=== PATIENT | male | born 1940 | race Caucasian/White ===

== ENCOUNTER 2017-10-06 10:27 | Inpatient (IN) | payer OTHER, MEDICARE ==
[~2017-10-06] VITALS: Ht 185.4 cm; Wt 115.2 kg
[~2017-10-06 10:27] MED LIST: AMIT25; AMIT25 PO; ASPI81CH PO; BUPR150ER; BUPR150ER PO; CEFD300 PO; CEPH500 PO; CHOL10002; CLOP75 PO; Colace250 MG PO; DESO.05TCA; DOCU100 PO; DULO30; DUTA.5 PO; FERR325 PO; FINA5 PO; FISH OIL 1,0001 EAC1 PO; FISH1000; FLUO25TC; GABA300; GLUC500 PO; Hair, Skin & N1 EACH; LEVSOD50 PO; LEVSOD75 PO; LISI5; LORA.5; LORA10; METF500; METF500C PO; METO25ER; NYST100TC; Norco 5-325 Ta1 EACH PO; OMEP20ER PO; PRIM50 PO; SENN187 PO; SIMV10; SIMV10 PO; TERA5; TRAM50 PO; Xanax0.5 MG SL
[2017-10-06] MEDS ORDERED: ASPI325 PO (10:53)
[2017-10-06] MEDS ORDERED: ATOR40TA PO (10:54)
[2017-10-06] MEDS ORDERED: DOCU100 PO (10:54)
[2017-10-06] MEDS ORDERED: BUPR150ER PO (10:54)
[2017-10-06] MEDS ORDERED: DULO30 PO (10:54)
[2017-10-06] MEDS ORDERED: FINA5 PO (10:54)
[2017-10-06] MEDS ORDERED: GABA300 PO (10:54)
[2017-10-06] MEDS ORDERED: LEVSOD50 PO (10:54)
[2017-10-06] MEDS ORDERED: METO50 PO (10:55)
[2017-10-06] MEDS ORDERED: DESL5 PO (10:55)
[2017-10-06] MEDS ORDERED: METF500C PO (10:55)
[2017-10-06] MEDS ORDERED: LISI5 PO (10:55)
[2017-10-06] MEDS ORDERED: TAMS.4ER PO (10:56)
[2017-10-06 11:12] LABS: BASOPHILS ABSOLUTE AUTO 0.09 K/mm3 (0.00-0.23); BASOPHILS PERCENT AUTO 1 % (0-2); EOSINOPHILS ABSOLUTE AUTO 0.44 K/mm3 (0.00-0.68); EOSINOPHILS PERCENT AUTO 4 % (0-6); IMMATURE GRAN ABSOLUTE AUTO 0.04 K/mm3 (0.00-0.10); IMMATURE GRAN PERCENT AUTO 0 % (0-1); LYMPHOCYTES ABSOLUTE AUTO 1.57 K/mm3 (0.84-5.20); LYMPHOCYTES PERCENT AUTO 14 % (21-46); MONOCYTES ABSOLUTE AUTO 0.88 K/mm3 (0.16-1.47); MONOCYTES PERCENT AUTO 8 % (4-13); Mean Corpuscular HGB 29.2 pg (26.0-34.0); Mean Corpuscular HGB Conc 33.3 g/dL (31.5-36.5); Mean Corpuscular Volume 88 fL (80-100); Mean Platelet Volume 9.8 fL (9.1-12.4); NEUTROPHILS ABSOLUTE AUTO 7.97 K/mm3 (1.96-9.15); NEUTROPHILS PERCENT AUTO 73 % (41-73); Platelet Count 281 K/mm3 (150-400); Red Blood Cell Count 4.11 M/mm3 (4.30-5.90); White Blood Cell Count 10.99 K/mm3 (4.00-11.30)
[2017-10-06 11:22] LABS: Alanine Aminotransfer (ALT/SGP 38 U/L (12-78); Albumin, Blood 3.2 g/dL (3.4-5.0); Albumin/Globulin Ratio 0.7 (0.8-1.8); Alk Phos 104 U/L (50-136); Anion Gap 11 mmol/L (6-16); Aspartate Aminotrans (AST/SGOT 30 U/L (12-37); Bilirubin, Total 0.5 mg/dL (0.1-1.0); Blood Urea Nitrogen 16 mg/dL (8-24); Bun/Creatinine Ratio 17.6 (12.0-20.0); CO2, Blood 27 mmol/L (21-32); Calcium, Blood 8.7 mg/dL (8.5-10.1); Chloride, Blood 96 mmol/L (98-108); Creatinine, Blood 0.91 mg/dL (0.60-1.20); Globulin, Blood 4.9 g/dL (2.2-4.0); Glomerular Filtration Rate >60 (60-); Glucose, Blood 150 mg/dL (70-99); Potassium, Blood 4.7 mmol/L (3.5-5.5); Sodium, Blood 134 mmol/L (136-145); Total Protein, Blood 8.1 g/dL (6.4-8.2)
[2017-10-06 12:29] LABS: Source, Urine Catheter
[2017-10-06 12:33] LABS: Bilirubin, Urine Neg (Neg); Blood, Urine 4+ (Neg); Glucose Qualitative, Urine Neg (Neg); Ketones, Urine Neg (Neg); Leukocyte Esterase, Urine 1+ (Neg); Nitrite, Urine Pos (Neg); Protein, Urine 1+ (Neg); Specific Gravity, Urine 1.015 (1.003-1.022); Urobilinogen, Urine NORM (Normal); pH, Urine 6.5 (5.0-8.0)
[2017-10-06 12:50] LABS: Appearance, Urine Cloudy (Clear); Color, Urine Yellow (P-Yellow)
[2017-10-06 12:51] LABS: Bacteria Many /hpf; Squamous Epithelial Cells Few /hpf (Few)
[2017-10-07 05:02] LABS: BASOPHILS ABSOLUTE AUTO 0.07 K/mm3 (0.00-0.23); BASOPHILS PERCENT AUTO 1 % (0-2); EOSINOPHILS PERCENT AUTO 5 % (0-6); Hematocrit 32.6 % (37.0-53.0); IMMATURE GRAN ABSOLUTE AUTO 0.02 K/mm3 (0.00-0.10); IMMATURE GRAN PERCENT AUTO 0 % (0-1); LYMPHOCYTES ABSOLUTE AUTO 1.91 K/mm3 (0.84-5.20); LYMPHOCYTES PERCENT AUTO 18 % (21-46); MONOCYTES ABSOLUTE AUTO 0.95 K/mm3 (0.16-1.47); MONOCYTES PERCENT AUTO 9 % (4-13); Mean Corpuscular HGB 29.3 pg (26.0-34.0); Mean Corpuscular HGB Conc 33.7 g/dL (31.5-36.5); Mean Corpuscular Volume 87 fL (80-100); Mean Platelet Volume 9.5 fL (9.1-12.4); NEUTROPHILS PERCENT AUTO 68 % (41-73); Platelet Count 272 K/mm3 (150-400); RDW Coefficient Variation 12.8 % (11.7-14.2); RDW Standard Deviation 40.8 fL (35.1-46.3); Red Blood Cell Count 3.75 M/mm3 (4.30-5.90); White Blood Cell Count 10.75 K/mm3 (4.00-11.30)
[2017-10-07 05:16] LABS: Anion Gap 9 mmol/L (6-16); Blood Urea Nitrogen 16 mg/dL (8-24); Bun/Creatinine Ratio 17.6 (12.0-20.0); CO2, Blood 27 mmol/L (21-32); Calcium, Blood 8.4 mg/dL (8.5-10.1); Chloride, Blood 97 mmol/L (98-108); Creatinine, Blood 0.91 mg/dL (0.60-1.20); Glomerular Filtration Rate >60 (60-); Glucose, Blood 107 mg/dL (70-99); Potassium, Blood 4.3 mmol/L (3.5-5.5); Sodium, Blood 133 mmol/L (136-145)
[2017-10-08 04:54] LABS: BASOPHILS ABSOLUTE AUTO 0.08 K/mm3 (0.00-0.23); BASOPHILS PERCENT AUTO 1 % (0-2); EOSINOPHILS ABSOLUTE AUTO 0.62 K/mm3 (0.00-0.68); EOSINOPHILS PERCENT AUTO 6 % (0-6); Hematocrit 34.2 % (37.0-53.0); Hemoglobin 11.4 g/dL (13.5-17.5); IMMATURE GRAN ABSOLUTE AUTO 0.03 K/mm3 (0.00-0.10); IMMATURE GRAN PERCENT AUTO 0 % (0-1); LYMPHOCYTES ABSOLUTE AUTO 1.69 K/mm3 (0.84-5.20); LYMPHOCYTES PERCENT AUTO 16 % (21-46); MONOCYTES ABSOLUTE AUTO 0.91 K/mm3 (0.16-1.47); MONOCYTES PERCENT AUTO 9 % (4-13); Mean Corpuscular HGB 28.1 pg (26.0-34.0); Mean Corpuscular HGB Conc 33.3 g/dL (31.5-36.5); Mean Corpuscular Volume 84 fL (80-100); Mean Platelet Volume 9.4 fL (9.1-12.4); NEUTROPHILS ABSOLUTE AUTO 7.07 K/mm3 (1.96-9.15); NEUTROPHILS PERCENT AUTO 68 % (41-73); Platelet Count 294 K/mm3 (150-400); RDW Coefficient Variation 12.8 % (11.7-14.2); RDW Standard Deviation 39.1 fL (35.1-46.3); Red Blood Cell Count 4.06 M/mm3 (4.30-5.90)
[2017-10-08 05:07] LABS: Anion Gap 10 mmol/L (6-16); Blood Urea Nitrogen 12 mg/dL (8-24); Bun/Creatinine Ratio 13.5 (12.0-20.0); CO2, Blood 27 mmol/L (21-32); Calcium, Blood 8.6 mg/dL (8.5-10.1); Chloride, Blood 99 mmol/L (98-108); Creatinine, Blood 0.89 mg/dL (0.60-1.20); Glomerular Filtration Rate >60 (60-); Glucose, Blood 112 mg/dL (70-99); Potassium, Blood 4.1 mmol/L (3.5-5.5); Sodium, Blood 136 mmol/L (136-145)
[2017-10-10 05:12] LABS: BASOPHILS ABSOLUTE AUTO 0.08 K/mm3 (0.00-0.23); BASOPHILS PERCENT AUTO 1 % (0-2); EOSINOPHILS ABSOLUTE AUTO 0.66 K/mm3 (0.00-0.68); EOSINOPHILS PERCENT AUTO 6 % (0-6); Hematocrit 36.3 % (37.0-53.0); IMMATURE GRAN ABSOLUTE AUTO 0.03 K/mm3 (0.00-0.10); IMMATURE GRAN PERCENT AUTO 0 % (0-1); LYMPHOCYTES ABSOLUTE AUTO 1.75 K/mm3 (0.84-5.20); LYMPHOCYTES PERCENT AUTO 16 % (21-46); MONOCYTES ABSOLUTE AUTO 0.87 K/mm3 (0.16-1.47); MONOCYTES PERCENT AUTO 8 % (4-13); Mean Corpuscular HGB 28.4 pg (26.0-34.0); Mean Corpuscular HGB Conc 33.1 g/dL (31.5-36.5); Mean Corpuscular Volume 86 fL (80-100); Mean Platelet Volume 9.4 fL (9.1-12.4); NEUTROPHILS ABSOLUTE AUTO 7.34 K/mm3 (1.96-9.15); NEUTROPHILS PERCENT AUTO 68 % (41-73); Platelet Count 331 K/mm3 (150-400); RDW Standard Deviation 39.8 fL (35.1-46.3); Red Blood Cell Count 4.23 M/mm3 (4.30-5.90); White Blood Cell Count 10.73 K/mm3 (4.00-11.30)
[2017-10-10 05:46] LABS: Alanine Aminotransfer (ALT/SGP 58 U/L (12-78); Albumin/Globulin Ratio 0.6 (0.8-1.8); Alk Phos 100 U/L (50-136); Anion Gap 8 mmol/L (6-16); Aspartate Aminotrans (AST/SGOT 40 U/L (12-37); Bilirubin, Total 0.7 mg/dL (0.1-1.0); Blood Urea Nitrogen 15 mg/dL (8-24); Bun/Creatinine Ratio 17.2 (12.0-20.0); CO2, Blood 28 mmol/L (21-32); Calcium, Blood 8.8 mg/dL (8.5-10.1); Chloride, Blood 99 mmol/L (98-108); Creatinine, Blood 0.87 mg/dL (0.60-1.20); Globulin, Blood 4.9 g/dL (2.2-4.0); Glomerular Filtration Rate >60 (60-); Glucose, Blood 107 mg/dL (70-99); Potassium, Blood 3.9 mmol/L (3.5-5.5); Sodium, Blood 135 mmol/L (136-145); Total Protein, Blood 7.9 g/dL (6.4-8.2)
[2017-10-12] MEDS ORDERED: PANT40 PO (15:29)
[2017-10-12] MEDS ORDERED: LEVFLO500 PO (15:29)
== END 2017-10-12 15:35 | DRG 178 ==
LOC: ER 10:27 → MEDS 14:34 → ENPENDDIS 10-12 14:51 → MEDS 10-12 15:35
PROVIDERS: Internal Medicine
DX: J69.0 Pneumonitis due to inhalation of food and vomit (principal); G91.2 (Idiopathic) normal pressure hydrocephalus; N39.0 Urinary tract infection, site not specified; Z79.82 Long term (current) use of aspirin; I10 Essential (primary) hypertension; I48.91 Unspecified atrial fibrillation; Z85.068 Personal history of other malignant neoplasm of small intestine; F03.90 Unspecified dementia, unspecified severity, without behavioral disturbance, psychotic disturbance, mood disturbance, and anxiety; E78.5 Hyperlipidemia, unspecified; E03.9 Hypothyroidism, unspecified; E11.42 Type 2 diabetes mellitus with diabetic polyneuropathy; Z96.653 Presence of artificial knee joint, bilateral; Z79.84 Long term (current) use of oral hypoglycemic drugs; A49.8 Other bacterial infections of unspecified site; R13.10 Dysphagia, unspecified; Z91.81 History of falling; E86.0 Dehydration; D64.9 Anemia, unspecified
CPT/HCPCS: 36415; 51701; 70450; 71046; 80048; 80053; 81001; 82947; 85025; 87040; 87077; 87086; 87186; 92526; 92610; 93005; 93010; 94640; 94760; 96365; 96368; 97110; 97161; 97166; 97530; 97535; 99285-25; G8978; G8979; G8987; G8988; G8996; G8997; G8998; J0696; J1650; J2543; J7030; J7120

== ENCOUNTER 2018-10-07 10:09 | Emergency (ER) | payer MEDICARE, OTHER ==
[~2018-10-07] VITALS: Ht 193 cm; Wt 127.9 kg
[~2018-10-07 10:09] MED LIST changes: +ASPI325 PO; +ATOR20 PO; +DESL5 PO; +DULO30 PO; +GABA300 PO; +LEVFLO500 PO; +LISI5 PO; +METO50 PO; +PANT40 PO; +TAMS.4ER PO
[2018-10-07] MEDS ORDERED: CHOL10002 PO (10:59)
[2018-10-07] MEDS ORDERED: Norco 5-325 Ta1 EACH PO (11:10)
[2018-10-07] MEDS ORDERED: Loratadine10 MG PO (11:10)
[2018-10-07 11:14] LABS: BASOPHILS ABSOLUTE AUTO 0.07 K/mm3 (0.00-0.23); BASOPHILS PERCENT AUTO 1 % (0-2); EOSINOPHILS ABSOLUTE AUTO 0.41 K/mm3 (0.00-0.68); EOSINOPHILS PERCENT AUTO 4 % (0-6); Hematocrit 41.1 % (37.0-53.0); Hemoglobin 13.2 g/dL (13.5-17.5); IMMATURE GRAN ABSOLUTE AUTO 0.04 K/mm3 (0.00-0.10); IMMATURE GRAN PERCENT AUTO 0 % (0-1); LYMPHOCYTES ABSOLUTE AUTO 1.18 K/mm3 (0.84-5.20); LYMPHOCYTES PERCENT AUTO 11 % (21-46); MONOCYTES ABSOLUTE AUTO 0.83 K/mm3 (0.16-1.47); MONOCYTES PERCENT AUTO 8 % (4-13); Mean Corpuscular HGB 27.4 pg (26.0-34.0); Mean Corpuscular HGB Conc 32.1 g/dL (31.5-36.5); Mean Corpuscular Volume 85 fL (80-100); Mean Platelet Volume 9.7 fL (9.1-12.4); NEUTROPHILS ABSOLUTE AUTO 7.99 K/mm3 (1.96-9.15); NEUTROPHILS PERCENT AUTO 76 % (41-73); Platelet Count 224 K/mm3 (150-400); RDW Coefficient Variation 16.3 % (11.7-14.2); RDW Standard Deviation 50.9 fL (35.1-46.3); Red Blood Cell Count 4.82 M/mm3 (4.30-5.90); White Blood Cell Count 10.52 K/mm3 (4.00-11.30)
[2018-10-07] MEDS ORDERED: SENN187 PO (11:15)
[2018-10-07] MEDS ORDERED: Fish Oil 1,0001 EAC3 PO (11:15)
[2018-10-07] MEDS ORDERED: THERA1 EACH PO (11:15)
[2018-10-07 11:28] LABS: Alanine Aminotransfer (ALT/SGP 28 U/L (12-78); Albumin, Blood 3.7 g/dL (3.4-5.0); Albumin/Globulin Ratio 0.9 (0.8-1.8); Alk Phos 128 U/L (50-136); Anion Gap 6 mmol/L (6-16); Aspartate Aminotrans (AST/SGOT 19 U/L (12-37); Bilirubin, Total 0.7 mg/dL (0.1-1.0); Blood Urea Nitrogen 16 mg/dL (8-24); Bun/Creatinine Ratio 18.6 (12.0-20.0); CO2, Blood 30 mmol/L (21-32); Calcium, Blood 8.8 mg/dL (8.5-10.1); Chloride, Blood 104 mmol/L (98-108); Creatinine, Blood 0.86 mg/dL (0.60-1.20); Globulin, Blood 4.3 g/dL (2.2-4.0); Glomerular Filtration Rate >60 (60-); Glucose, Blood 104 mg/dL (70-99); Potassium, Blood 4.3 mmol/L (3.5-5.5); Sodium, Blood 140 mmol/L (136-145)
[2018-10-07 12:59] LABS: Source, Urine Catheter
[2018-10-07 13:11] LABS: Bilirubin, Urine Neg (Neg); Blood, Urine Neg (Neg); Glucose Qualitative, Urine Neg (Neg); Ketones, Urine Neg (Neg); Leukocyte Esterase, Urine 2+ (Neg); Nitrite, Urine Pos (Neg); Protein, Urine 1+ (Neg); Specific Gravity, Urine 1.025 (1.003-1.022); Urobilinogen, Urine NORM (Normal)
[2018-10-07 13:32] LABS: Appearance, Urine Cloudy (Clear); Color, Urine Yellow (P-Yellow)
[2018-10-07 13:35] LABS: Red Blood Cells, Urine 0-2 /hpf (0-2)
[2018-10-07 13:36] LABS: Bacteria Mod /hpf; Squamous Epithelial Cells Rare /hpf (Few)
[2018-10-07 15:38] LABS: Adenovirus F 40/41 Not Detected (NOT DETECT); Astrovirus Not Detected (NOT DETECT); Campylobacter Sp Not Detected (NOT DETECT); Cryptosporidium Not Detected (NOT DETECT); Cyclospora Cayetanensis Not Detected (NOT DETECT); E. Coli O157 Not Detected (NOT DETECT); Entamoeba Histolytica Not Detected (NOT DETECT); Enteroaggregative E. coli-EAEC Not Detected (NOT DETECT); Enteropathogenic E. coli-EPEC Not Detected (NOT DETECT); Enterotoxigenic E. coli-ETEC Not Detected (NOT DETECT); Giardia Lamblia Not Detected (NOT DETECT); Norovirus GI/GII Not Detected (NOT DETECT); Plesiomonas Shigelloides Not Detected (NOT DETECT); Rotavirus A Not Detected (NOT DETECT); Salmonella Sp Not Detected (NOT DETECT); Sapovirus Not Detected (NOT DETECT); Shiga Toxin-prod E. coli-STEC Not Detected (NOT DETECT); Shigella/Enteroin E. coli-EIEC Not Detected (NOT DETECT); Vibrio Cholerae Not Detected (NOT DETECT); Vibrio Sp Not Detected (NOT DETECT); Yersinia Enterocolitica Not Detected (NOT DETECT)
== END 2018-10-07 17:12 | disposition home or self-care (01) ==
LOC: ER 10:09
PROVIDERS: Emergency Medicine
DX: E86.0 Dehydration (principal); R19.7 Diarrhea, unspecified; M25.571 Pain in right ankle and joints of right foot; F32.9 Major depressive disorder, single episode, unspecified; G89.29 Other chronic pain; I48.91 Unspecified atrial fibrillation; I10 Essential (primary) hypertension; F03.90 Unspecified dementia, unspecified severity, without behavioral disturbance, psychotic disturbance, mood disturbance, and anxiety; E78.5 Hyperlipidemia, unspecified; E03.9 Hypothyroidism, unspecified; Z79.82 Long term (current) use of aspirin; Z79.899 Other long term (current) drug therapy; Z79.84 Long term (current) use of oral hypoglycemic drugs
CPT/HCPCS: 0097U; 36415; 73610; 80053; 81001; 83690; 85025; 87086; 96360; 99284-25; J7030

== ENCOUNTER 2021-11-10 09:18 | Emergency (ER) | payer OTHER ==
[~2021-11-10] VITALS: Ht 193 cm; Wt 108.9 kg
[~2021-11-10 09:18] MED LIST changes: +CHOL10002 PO; +Fish Oil 1,0001 EAC3 PO; +Loratadine10 MG PO; +THERA1 EACH PO
[2021-11-10 09:58] LABS: BASOPHILS ABSOLUTE AUTO 0.07 K/mm3 (0.00-0.23); BASOPHILS PERCENT AUTO 1 % (0-2); EOSINOPHILS ABSOLUTE AUTO 0.41 K/mm3 (0.00-0.68); EOSINOPHILS PERCENT AUTO 4 % (0-6); Hematocrit 41.8 % (37.0-53.0); Hemoglobin 13.5 g/dL (13.5-17.5); IMMATURE GRAN ABSOLUTE AUTO 0.03 K/mm3 (0.00-0.10); IMMATURE GRAN PERCENT AUTO 0 % (0-1); LYMPHOCYTES ABSOLUTE AUTO 1.32 K/mm3 (0.84-5.20); LYMPHOCYTES PERCENT AUTO 14 % (21-46); MONOCYTES ABSOLUTE AUTO 0.47 K/mm3 (0.16-1.47); MONOCYTES PERCENT AUTO 5 % (4-13); Mean Corpuscular HGB 28.1 pg (26.0-34.0); Mean Corpuscular HGB Conc 32.3 g/dL (31.5-36.5); Mean Corpuscular Volume 87 fL (80-100); Mean Platelet Volume 9.8 fL (9.1-12.4); NEUTROPHILS ABSOLUTE AUTO 6.94 K/mm3 (1.96-9.15); NEUTROPHILS PERCENT AUTO 75 % (41-73); Platelet Count 198 K/mm3 (150-400); RDW Coefficient Variation 13.2 % (11.7-14.2); RDW Standard Deviation 41.9 fL (35.1-46.3); White Blood Cell Count 9.24 K/mm3 (4.00-11.30)
[2021-11-10 10:17] LABS: Source, Urine Foley catheter
[2021-11-10 10:22] LABS: Appearance, Urine Clear (Clear); Bilirubin, Urine Neg (Neg); Blood, Urine 2+ (Neg); Color, Urine Yellow (P-Yellow); Glucose Qualitative, Urine Neg (Neg); Ketones, Urine Neg (Neg); Leukocyte Esterase, Urine 3+ (Neg); Nitrite, Urine Neg (Neg); Protein, Urine 2+ (Neg); Urobilinogen, Urine NORM (Normal)
[2021-11-10 10:23] LABS: Albumin, Blood 3.9 g/dL (3.4-5.0); Albumin/Globulin Ratio 0.9 (0.8-1.8); Bilirubin, Total 0.5 mg/dL (0.1-1.0); Bun/Creatinine Ratio 25.7 (12.0-20.0); Calcium, Blood 9.1 mg/dL (8.5-10.1); Creatinine, Blood 0.78 mg/dL (0.60-1.20); Globulin, Blood 4.3 g/dL (2.2-4.0); Potassium, Blood 4.7 mmol/L (3.5-5.5); Total Protein, Blood 8.2 g/dL (6.4-8.2)
[2021-11-10 10:54] LABS: Bacteria Many /hpf; Squamous Epithelial Cells Few /hpf (Few); White Blood Cells, Urine 25-50 /hpf (0-5)
[2021-11-10] MEDS ORDERED: CEPH500 PO (11:33)
== END 2021-11-10 12:47 | disposition home or self-care (01) ==
LOC: ER 09:18
PROVIDERS: Emergency Medicine
DX: N39.0 Urinary tract infection, site not specified (principal); G93.40 Encephalopathy, unspecified; I48.91 Unspecified atrial fibrillation; E78.5 Hyperlipidemia, unspecified; I10 Essential (primary) hypertension; E03.9 Hypothyroidism, unspecified; F03.90 Unspecified dementia, unspecified severity, without behavioral disturbance, psychotic disturbance, mood disturbance, and anxiety; Z74.01 Bed confinement status; Z79.84 Long term (current) use of oral hypoglycemic drugs; Z79.899 Other long term (current) drug therapy; Z79.82 Long term (current) use of aspirin; Z98.2 Presence of cerebrospinal fluid drainage device; Z86.69 Personal history of other diseases of the nervous system and sense organs; Z96.0 Presence of urogenital implants
CPT/HCPCS: 70450; 71045; 80053; 81001; 84484; 85025; 87077; 87086; 87186; 93005; 93010; 96374; 99285-25; J0696

== ENCOUNTER → 2022-04-30 | Outpatient (CLI) | payer OTHER | END | disposition home or self-care (01) | LOC: LAB SHORT 16:42 → LAB 16:42 | DX: N39.0 Urinary tract infection, site not specified (principal) | CPT/HCPCS: 87077; 87086; 87186 ==

== ENCOUNTER → 2022-10-28 | Outpatient (CLI) | payer MEDICARE ==
[~2022-10-28] MED LIST changes: +ALOGLIPTIN25 M1 PO; +ARTIFICIAL TEA1 EAC1 BOTHEYES; -ASPI325 PO; +Acerola C500 MG PO; +Aspir 8181 MG PO; -CHOL10002 PO; -DULO30 PO; +DULO60 PO; +EUTHYROX50 MCG PO; +FAMO20 PO; +FERSU300 PO; -Fish Oil 1,0001 EAC3 PO; -GABA300 PO; +GABA600 PO; +Gormel75 GM TOP; +METFORMIN HCL1000 MG PO; +MULVITA PO; +NYSTATIN15 GM TOP; +OMEGA-3 FISH O1 EAC6 PO; +OXYB5 PO; -THERA1 EACH PO; +VITAMIN D32000 UNI1 PO
[2022-10-28 11:04] LABS: Appearance, Urine Hazy (Clear); Bilirubin, Urine Neg (Neg); Blood, Urine 4+ (Neg); Color, Urine Amber (P-Yellow); Glucose Qualitative, Urine Neg (Neg); Ketones, Urine Neg (Neg); Leukocyte Esterase, Urine 3+ (Neg); Nitrite, Urine Neg (Neg); Protein, Urine 2+ (Neg); Urobilinogen, Urine NORM (Normal)
[2022-10-28 11:30] LABS: Mucus Mod (0-Heavy); Squamous Epithelial Cells Few /hpf (Few)
[2022-10-28 11:31] LABS: Bacteria Few /hpf; Red Blood Cells, Urine 25-50 /hpf (0-2); White Blood Cells, Urine 25-50 /hpf (0-5)
[2022-10-28 11:32] LABS: Amorphous Mod (0-Heavy); Transitional Epithelial Cells Rare /hpf (0-Rare); Yeast/Fungi Urine Rare /hpf
== END | disposition home or self-care (01) ==
LOC: LAB QU 02:30 → LAB RH 02:30 → EDSTATUS 10:38
DX: N39.0 Urinary tract infection, site not specified (principal)
CPT/HCPCS: 81001; 87086

== ENCOUNTER 2022-11-06 13:20 | Inpatient (IN) | payer OTHER ==
[~2022-11-06] VITALS: Ht 193 cm; Wt 106.3 kg
[~2022-11-06 13:20] MED LIST changes: -ALOGLIPTIN25 M1 PO; -ARTIFICIAL TEA1 EAC1 BOTHEYES; -Acerola C500 MG PO; -FAMO20 PO; -FERSU300 PO; -Gormel75 GM TOP; -NYSTATIN15 GM TOP; -OXYB5 PO
[2022-11-06 13:55] LABS: Source, Urine Foley catheter
[2022-11-06 14:00] LABS: BASOPHILS ABSOLUTE AUTO 0.07 K/mm3 (0.00-0.23); BASOPHILS PERCENT AUTO 1 % (0-2); EOSINOPHILS PERCENT AUTO 6 % (0-6); Hematocrit 36.4 % (37.0-53.0); Hemoglobin 11.9 g/dL (13.5-17.5); IMMATURE GRAN ABSOLUTE AUTO 0.05 K/mm3 (0.00-0.10); IMMATURE GRAN PERCENT AUTO 0 % (0-1); LYMPHOCYTES ABSOLUTE AUTO 1.91 K/mm3 (0.84-5.20); LYMPHOCYTES PERCENT AUTO 16 % (21-46); MONOCYTES ABSOLUTE AUTO 0.79 K/mm3 (0.16-1.47); MONOCYTES PERCENT AUTO 7 % (4-13); Mean Corpuscular HGB 29.3 pg (26.0-34.0); Mean Corpuscular HGB Conc 32.7 g/dL (31.5-36.5); Mean Corpuscular Volume 90 fL (80-100); Mean Platelet Volume 10.1 fL (9.1-12.4); NEUTROPHILS ABSOLUTE AUTO 8.41 K/mm3 (1.96-9.15); NEUTROPHILS PERCENT AUTO 71 % (41-73); Platelet Count 355 K/mm3 (150-400); RDW Coefficient Variation 13.2 % (11.7-14.2); RDW Standard Deviation 43.3 fL (35.1-46.3); Red Blood Cell Count 4.06 M/mm3 (4.30-5.90); White Blood Cell Count 11.93 K/mm3 (4.00-11.30)
[2022-11-06 14:05] LABS: Bilirubin, Urine Neg (Neg); Blood, Urine Neg (Neg); Color, Urine Yellow (P-Yellow); Glucose Qualitative, Urine Neg (Neg); Ketones, Urine Neg (Neg); Leukocyte Esterase, Urine Neg (Neg); Nitrite, Urine Neg (Neg); Protein, Urine 2+ (Neg); Urobilinogen, Urine NORM (Normal)
[2022-11-06 14:16] LABS: Albumin, Blood 3.2 g/dL (3.4-5.0); Albumin/Globulin Ratio 0.7 (0.8-1.8); Bilirubin, Total 0.6 mg/dL (0.1-1.0); Bun/Creatinine Ratio 29.1 (12.0-20.0); Calcium, Blood 8.8 mg/dL (8.5-10.1); Creatinine, Blood 1.03 mg/dL (0.60-1.20); Globulin, Blood 4.5 g/dL (2.2-4.0); Total Protein, Blood 7.7 g/dL (6.4-8.2)
[2022-11-06 14:32] LABS: Amorphous Light (0-Heavy); Appearance, Urine Hazy (Clear); Bacteria Mod /hpf; Hyaline Casts 0-2 /lpf (0-2); Mucus Light (0-Heavy); Red Blood Cells, Urine 0-2 /hpf (0-2); Squamous Epithelial Cells Few /hpf (Few); White Blood Cells, Urine 0-2 /hpf (0-5)
[2022-11-06 18:36] LABS: International Normalized Ratio 1.03; Prothrombin Time Results 10.8 Sec (9.7-11.5)
[2022-11-06 18:46] LABS: Base Excess Venous 2.8 mmol/L; Bicarbonate Venous 25.6 mmol/L (24.0-30.0); pH Blood Venous 7.32 (7.34-7.37)
[2022-11-06 19:09] LABS: U Amphetamine Screen Not Detected; U Barbituate Screen Not Detected; U Benzodiazapine Screen Not Detected; U Buprenorphine Screen Not Detected; U Cannabinoids Screen Not Detected; U Cocaine Screen Not Detected; U Methadone Screen Not Detected; U Methamphetamine Screen Not Detected; U Opiates Screen Not Detected; U Oxycodone Screen Not Detected; U Phencyclidine Screen Not Detected; U Propoxyphene Screen Not Detected
[2022-11-07 00:46] VITALS: BP 147/79
[2022-11-07 03:57] VITALS: BP 138/84
[2022-11-07 04:57] LABS: BASOPHILS ABSOLUTE AUTO 0.07 K/mm3 (0.00-0.23); BASOPHILS PERCENT AUTO 1 % (0-2); EOSINOPHILS PERCENT AUTO 6 % (0-6); Hematocrit 35.5 % (37.0-53.0); Hemoglobin 11.7 g/dL (13.5-17.5); IMMATURE GRAN ABSOLUTE AUTO 0.03 K/mm3 (0.00-0.10); IMMATURE GRAN PERCENT AUTO 0 % (0-1); LYMPHOCYTES ABSOLUTE AUTO 1.85 K/mm3 (0.84-5.20); LYMPHOCYTES PERCENT AUTO 16 % (21-46); MONOCYTES ABSOLUTE AUTO 0.71 K/mm3 (0.16-1.47); MONOCYTES PERCENT AUTO 6 % (4-13); Mean Corpuscular HGB 29.3 pg (26.0-34.0); Mean Corpuscular Volume 89 fL (80-100); Mean Platelet Volume 10.1 fL (9.1-12.4); NEUTROPHILS ABSOLUTE AUTO 8.02 K/mm3 (1.96-9.15); NEUTROPHILS PERCENT AUTO 70 % (41-73); Platelet Count 341 K/mm3 (150-400); RDW Coefficient Variation 13.3 % (11.7-14.2); RDW Standard Deviation 43.4 fL (35.1-46.3); Red Blood Cell Count 3.99 M/mm3 (4.30-5.90); White Blood Cell Count 11.38 K/mm3 (4.00-11.30)
[2022-11-07 05:33] LABS: Albumin, Blood 3.1 g/dL (3.4-5.0); Albumin/Globulin Ratio 0.7 (0.8-1.8); Bilirubin, Total 0.6 mg/dL (0.1-1.0); Bun/Creatinine Ratio 28.5 (12.0-20.0); Calcium, Blood 8.8 mg/dL (8.5-10.1); Creatinine, Blood 0.84 mg/dL (0.60-1.20); Globulin, Blood 4.5 g/dL (2.2-4.0); Potassium, Blood 4.8 mmol/L (3.5-5.5); Total Protein, Blood 7.6 g/dL (6.4-8.2)
[2022-11-07 06:02] LABS: Source, Urine Foley catheter
[2022-11-07 06:06] LABS: Appearance, Urine Clear (Clear); Bilirubin, Urine Neg (Neg); Blood, Urine 1+ (Neg); Color, Urine Yellow (P-Yellow); Glucose Qualitative, Urine Neg (Neg); Ketones, Urine Neg (Neg); Leukocyte Esterase, Urine Neg (Neg); Nitrite, Urine Neg (Neg); Protein, Urine 1+ (Neg); Urobilinogen, Urine NORM (Normal)
[2022-11-07 06:18] LABS: Amorphous Light (0-Heavy); Bacteria Rare /hpf; Red Blood Cells, Urine 0-2 /hpf (0-2); Squamous Epithelial Cells Rare /hpf (Few); White Blood Cells, Urine 0-2 /hpf (0-5)
[2022-11-07 07:19] VITALS: BP 148/75
--- NOTE | 2022-11-07 07:53 | NUR ---
Shift Summary Pt was admitted last night from the ED with dx of Sycope. He was at [facility] and reported increasing confusion and poor responsiveness. He has improved since arriving to [facility] but his short term memory is very poor, he doesn't remember who I am 45 minutes after I leave his room and come back. [facility] neurosurgery is involved in his care and he was reported to have an appointment this with his ortho specialist in [place]. Pt has multiple fractures in his RLE and a cast on his R leg and foot. Pt cannot feel when I pinch his first 3 toes, called hospitalist who is aware. Capillary refill on RLE takes around 4-5 seconds. No c/o pain or discomfort. Pt is bedbound and is a lift transfer.
--- NOTE | 2022-11-07 08:00 | NUR ---
PT PLEASANT SOMEWHAT CONFUSED. ALERT TO SELF AND FAMILY. DENIES PAIN AT THIS TIME. ABLE TO TELL ME AGE, , , HER NAME, H/R REG, NO MURMUR NOTED. PER TELE NSR AT 98, NO EDEMA NOTED. LUNGS CLEAR, RESP EASY, UNLABORED. ON R.A. BT X4 LAST BM NOT KNOWN BY PT. VOIDS DELUCA CATH, DRAINING YELLOW FLUID. BED BOUND AT THIS TIME. NEED LIFT TO MOVE. HE HAS A CAST ON RT LEG, TO TOES. TOES PINK, WARM, <3 SEC REFILL. STATES NO FEELING IN GREAT, 1ST AND SECOND TOE. BED IN LOW POSITION, CALL LITE IN REACH BED ALARN ON FOR SAFETY
[2022-11-07 09:41] LABS: Base Excess Venous 2.9 mmol/L; Bicarbonate Venous 26.3 mmol/L (24.0-30.0); PCO2 Venous 46.3 mmHg (38-42); pH Blood Venous 7.39 (7.34-7.37)
[2022-11-07 15:40] VITALS: BP 138/73
--- NOTE | 2022-11-07 18:14 | NUR ---
PT PLEASANTLY LIGHTLY CONFUSED TODAY. OFTEN A/O TO SELF AND FAMILY, FORGETS AND PULLS ON TELE CORDS DISCONNECTING. NO C/O PAIN TODAY. STATES FEELS WILL BE TAKING HIM HOME TOMORROW. SHE WAS IN AND SPOKE TO DR ZAZUETA TODAY. CARE MANAGEMENT WORKING WITH THEM FOR SAFE DISCHARGE. NO NEW CONCERNS NOTED. BED IN LOW POSITION, CALL LITE IN REACH, BED ALARM ON FOR SAFETY
[2022-11-07 19:43] VITALS: BP 124/66
--- NOTE | 2022-11-07 22:09 | NUR ---
Sudden 10 headache Pt c/o sudden 01/16 headache despite recently getting pain medication for leg. Called hospitalist who reviewed chart and ordered a STAT head CT. Pt states his head is feeling better after returning from the head CT.
[2022-11-08 03:51] VITALS: BP 142/70
[2022-11-08 04:48] LABS: BASOPHILS ABSOLUTE AUTO 0.08 K/mm3 (0.00-0.23); BASOPHILS PERCENT AUTO 1 % (0-2); EOSINOPHILS ABSOLUTE AUTO 0.55 K/mm3 (0.00-0.68); EOSINOPHILS PERCENT AUTO 5 % (0-6); Hematocrit 34.7 % (37.0-53.0); Hemoglobin 11.2 g/dL (13.5-17.5); IMMATURE GRAN ABSOLUTE AUTO 0.03 K/mm3 (0.00-0.10); IMMATURE GRAN PERCENT AUTO 0 % (0-1); LYMPHOCYTES ABSOLUTE AUTO 2.24 K/mm3 (0.84-5.20); LYMPHOCYTES PERCENT AUTO 21 % (21-46); MONOCYTES ABSOLUTE AUTO 0.77 K/mm3 (0.16-1.47); MONOCYTES PERCENT AUTO 7 % (4-13); Mean Corpuscular HGB 28.7 pg (26.0-34.0); Mean Corpuscular HGB Conc 32.3 g/dL (31.5-36.5); Mean Corpuscular Volume 89 fL (80-100); NEUTROPHILS PERCENT AUTO 66 % (41-73); Platelet Count 328 K/mm3 (150-400); RDW Standard Deviation 42.6 fL (35.1-46.3); White Blood Cell Count 10.87 K/mm3 (4.00-11.30)
[2022-11-08 05:14] LABS: Bun/Creatinine Ratio 24.3 (12.0-20.0); Calcium, Blood 8.7 mg/dL (8.5-10.1); Creatinine, Blood 0.95 mg/dL (0.60-1.20); Potassium, Blood 4.3 mmol/L (3.5-5.5)
[2022-11-08 07:21] VITALS: BP 143/84
--- NOTE | 2022-11-08 07:24 | NUR ---
Shift Summary Pt c/o sudden severe headache last night, hospitalist ordered a head CT scan which showed no changes from previous scan. Pt headache was gone by the time he got back from the scan. He had increased confusion last night and was pulling on his lines, removing tele, removing clothes and trying to get out of bed this AM. He was more difficult to redirect than yesterday. I recommended to the charge nurse that he would be a good candidate for SCU. He ran NSR on tele all night, no calls. His RLE remains numb.
[2022-11-08 15:21] VITALS: BP 121/68
--- NOTE | 2022-11-08 18:00 | NUR ---
SHIFT SUMMARY: NO ACUTE EVENTS. A&O X 1-2, RECOGNIZED , SLEEPY MOST OF THE DAY. NO EVENTS ON TELEMETRY, WAS SR 90'S BEFORE TELE D/C'D. DELUCA DRAINING ADEQUATE URINE. R LEG IN CAST, ELEVATED ON PILLOWS AND HEEL FLOATED. PT STATED HE HAD SENSATION IN TOES AND TOP OF FOOT, ABLE TO WIGGLE TOES. TOLERATING CARDIAC DIET, NEEDED FEEDING ASSISTANCE. SCD ON LLE. ARNALDO AT BEDSIDE MOST OF THE DAY. HEAD MRI STILL PENDING.
[2022-11-08 20:23] VITALS: BP 124/68
[2022-11-08] MEDS ORDERED: Gormel75 GM TOP (23:52)
[2022-11-08] MEDS ORDERED: ARTIFICIAL TEA1 EAC1 BOTHEYES (23:54)
[2022-11-08] MEDS ORDERED: Acerola C500 MG PO (23:55)
[2022-11-08] MEDS ORDERED: ALOGLIPTIN25 M1 PO (23:57)
[2022-11-08] MEDS ORDERED: OXYB5 PO (23:57)
[2022-11-08] MEDS ORDERED: FAMO20 PO (23:58)
[2022-11-08] MEDS ORDERED: FERSU300 PO (23:58)
[2022-11-09] MEDS ORDERED: NYSTATIN15 GM TOP (00:01)
[2022-11-09 02:38] VITALS: BP 129/81
--- NOTE | 2022-11-09 03:42 | NUR ---
SHIFT SUMMARY NOC PT A/O TO SELF , AND PRIOR SERVICE. PLEASANTLY CONFUSED AND COOPERATIVE WITH CARE. PT HAS DELUCA IN PLACE DRAINING TO GRAVITY. NO ACUTE CHANGES TO REPORT. PT HAS X-RAY FOR R TIBIA AND HEAD MRI SCHEDULED FOR AM, WITH FOLLOW UP WITH [facility] FOR BEST COURSE OF ACTION. PT IS CURRENTLY RESTING WITH BED ALARM ON, BED IN LOWEST POSITION, AND CALL LIGHT WITHIN REACH.
[2022-11-09 07:25] VITALS: BP 126/71
[2022-11-09 15:26] VITALS: BP 129/80
--- NOTE | 2022-11-09 18:50 | NUR ---
SUMMARY PATIENT HAVING EPISODES OF BEING AWAKE AND ABLE TO VERBALIZE NEEDS, OTHER TIMES PATIENT CLOSES HIS EYES AND DOES NOT ANSWER QUESTIONS WHEN ASKED. PATIENT CONTINUES TO HAVE MOIST COUGH THAT IS PRODUCTIVE AT TIMES. PATIENT NEEDS ASSISTANCE WITH EATING. PATIENT TURNED FREQUENTLY AND R LEG POSITIONED ON FOAM WEDGE TO PREVENT HEAL FROM TOUCHING FOOT BOARD. VISITED PATIENT AND VERBALIZING GUILT ABOUT SENDING HIM TO A FACILITY WHERE HE INJURED HIS LEG. IS HOPEFUL TO BE ABLE TO BRING HIM HOME SOON. DR. HOFFMANN EVALUATED R LEG XRAY AND STATES DOING WELL.
[2022-11-09 19:30] VITALS: BP 109/62
[2022-11-10 02:08] VITALS: BP 126/77
--- NOTE | 2022-11-10 03:21 | NUR ---
PT EDUCATED ON [facility] FIRE SAFETY IGNITION/EXPOLOSIVE SOURCES NON SMOKING POLICY AND VERBALIZED UNDERSTANDING.
--- NOTE | 2022-11-10 03:27 | NUR ---
SHIFT SUMMARY NOC PT A/O TO SELF AND ANSWERS QUESTIONS APPROPRIATELY. PLEASANTLY CONFUSED AND COOPERATIVE WITH CARE. DELUCA IN PLACE DRAINING TO GRAVITY.PT STILL HAS BRAIN MRI PENDING TO DETERMINE IF SHUNT IS OBSTRUCTED, STILL WAITING ON PAPERWORK FROM FACILITY THAT PERFORMED PROCEDURE. PT REPORTS THAT PROCEDURE WAS PERFORMED AT [facility] IN [place], BUT UNABLE TO VERIFY DUE TO PT UNSTABLE MENTATION. PT HAD C/O OF RLE PAIN AND WAS MEDICATED PER EMAR AT BEGINNING OF SHIFT. HAS SOFT SPLINT IN PLACE ON RLE, ELEVATED EGG CRATE WAS REMOVED AT PT REQUEST DUE TO EXTREME DISCOMFORT. PAIN SEEM TO BE ALLEVIATED AFTER REMOVAL, BUT PT STILL WANTED PAIN RX. CURRENT PLAN IS POSSIBLE SHUNT REPLACEMENT IF CLOGGED, THEN TIB/FIB FX SURGERY AT [facility] ONCE OTHER MED ISSUES ARE RESOLVED. PT IS CURRENTLY RESTING WITH BED ALARM ON, BED IN LOWEST POSITION, AND CALL LIGHT WITHIN REACH.
[2022-11-10 08:02] VITALS: BP 116/75
[2022-11-10 11:44] LABS: Base Excess Venous 4.8 mmol/L; Bicarbonate Venous 27.6 mmol/L (24.0-30.0); PO2 Venous 56.2 mmHg (38-42); pH Blood Venous 7.36 (7.34-7.37)
[2022-11-10 16:56] VITALS: BP 117/79
--- NOTE | 2022-11-10 19:21 | NUR ---
SHIFT SUMMARY PATIENT MORE AWAKE TODAY AND INTERACTIVE. CONTINUES TO BE CONFUSED AT TIMES. PATIENT ABLE TO PARTICIPATE IN FEEDING AND DRINKING. PATIENT IRRITABLE AT END OF SHIFT WANTING TO GET UP TO THE BATHROOM TO HAVE A BM. PATIENT WAS NOT REDIRECTABLE OR WILLING TO USE A BED LARSON. PATIENT CONTINUES TO HAVE MOIST COUGH AND OCCASIONALLY COUGHING UP THICK SECRETIONS. PATIENT NEEDING FREQUENT REPOSITIONING OF R LEG TO PREVENT PRESSURE TO HEAL AND SEPERATE L FOOT FROM SPLINT. PATIENT NOTED TO HAVE A SMALL EXCORIATED AREA ABOVE L GREAT TOE. AWARE AND BANDAGE PLACED TO PROTECT AREA. ROUGH AREA NOTED ON R FOOT CAST WHERE PATIENT LIKES TO REST HIS L FOOT.
[2022-11-10 20:09] VITALS: BP 103/86
--- NOTE | 2022-11-10 20:10 | NUR ---
PATIENT CONFUSED TRYING TO GET OUT OF BED. NOT REDIRECTABLE OR FOLLOWING DIRECTIONS AT THIS TIME. RIGHT LEG CAST/SPLINT. BED ALARM ACTIVATED.
--- NOTE | 2022-11-11 04:15 | NUR ---
SHIFT SUMMARY PATIENT HAD INCREASED CONFUSION AT START OF SHIFT WANTING TO GET OOB WITH RIGHT LEG FX. AXOX 2 AND BEDREST REFUSING TO USE BEDPAN. NO ABLE TO FOLLOW DIRECTIONS AND REPEATED TRYING TO GET OUT OF BED. NO IV ACCESS. DENIES RIGHT LEG PAIN, SOB, AND N/V. VSS/AFEBRILE. DELUCA PATENT AND DRAINING TO GRAVITY. PATIENT AWAKE MOST OF FIRST HALF OF SHIFT. CALL LIGHT IN REACH. BED IN LOWEST POSITION AND ALARM ACTIVATED. WILL CONTINUE TO MONITOR UNTIL DAY SHIFT NURSE ASSUMES CARE.
[2022-11-11 05:17] LABS: BASOPHILS ABSOLUTE AUTO 0.15 K/mm3 (0.00-0.23); BASOPHILS PERCENT AUTO 1 % (0-2); EOSINOPHILS ABSOLUTE AUTO 0.54 K/mm3 (0.00-0.68); EOSINOPHILS PERCENT AUTO 4 % (0-6); Hematocrit 34.5 % (37.0-53.0); Hemoglobin 11.5 g/dL (13.5-17.5); IMMATURE GRAN ABSOLUTE AUTO 0.04 K/mm3 (0.00-0.10); IMMATURE GRAN PERCENT AUTO 0 % (0-1); LYMPHOCYTES ABSOLUTE AUTO 2.47 K/mm3 (0.84-5.20); LYMPHOCYTES PERCENT AUTO 19 % (21-46); MONOCYTES PERCENT AUTO 7 % (4-13); Mean Corpuscular HGB Conc 33.3 g/dL (31.5-36.5); Mean Corpuscular Volume 87 fL (80-100); NEUTROPHILS ABSOLUTE AUTO 9.11 K/mm3 (1.96-9.15); NEUTROPHILS PERCENT AUTO 69 % (41-73); Platelet Count 354 K/mm3 (150-400); RDW Standard Deviation 40.6 fL (35.1-46.3); Red Blood Cell Count 3.97 M/mm3 (4.30-5.90); White Blood Cell Count 13.21 K/mm3 (4.00-11.30)
--- NOTE | 2022-11-11 05:35 | NUR ---
HOSPITALIST DR ARCHULETA ORDERED NO IV ACCESS AND ZOFRAN ODT 4 MG Q6 PRN
[2022-11-11 06:43] LABS: Bun/Creatinine Ratio 23.4 (12.0-20.0); Calcium, Blood 9.1 mg/dL (8.5-10.1); Creatinine, Blood 0.94 mg/dL (0.60-1.20); Potassium, Blood 4.2 mmol/L (3.5-5.5)
[2022-11-11 07:17] VITALS: BP 127/77
[2022-11-11 17:00] VITALS: BP 157/127
--- NOTE | 2022-11-11 17:47 | NUR ---
SHIFT SUMMARY PT RESTING QUIETLY AT START OF SHIFT, BUT WOKE EASILY FOR REPORT. PT WITH RLE FX WITH LEG IN CAST AND ELEVATED ON PILLOWS. 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 2ND MRI SCREENING FORM FILLED OUT, BUT UNABLE TO HAVE MRI D/T SHUNT TO L HEAD. PT'S LATER IN TO UPDATE INFO, REPORTING PT TO D/C BACK TO [facility] WHEN PT'S MENTATION IS BACK TO BASELINE. DR DUEÑAS TALKING WITH THIS AM. PT C/O PAIN TO R HEEL THIS AFTERNOON. PT'S RLE ELEVATED FURTHER ON PILLOW AND EGG CRATE AND OFFERED TYLENOL. PT REFUSING PAIN MEDICATION THIS AM AND AGAIN THIS AFTERNOON. PT LATER REPORTING PAIN IN HEEL RESOLVED. ASSISTED PT IN CALLING THIS EVENING. DENIED FURTHER NEEDS. CALL LT IN REACH.
[2022-11-11 19:27] VITALS: BP 118/104
--- NOTE | 2022-11-12 04:20 | NUR ---
SHIFT SUMMARY PATIENT HAD NO ACUTE CHANGES. AXOX 2-3 WITH CONFUSION AND BEDREST. HX DEMENIA. RIGHT LEG FX IN CAST/SPLINT. REFUSED PAIN MEDICATION T/O SHIFT. DELUCA PATENT AND DRAINING TO GRAVITY. DENIES CHEST PAIN, SOB, AND N/V. NO IV ACCESS. CALL LIGHT IN REACH. BED IN LOWEST POSITION AND ALARM ACTIVATED. WILL CONTINUE TO MONITOR UNTIL DAY SHIFT NURSE ASSUMES CARE.
[2022-11-12 07:42] VITALS: BP 158/85
[2022-11-12] MEDS ORDERED: FINA5 PO (13:16)
[2022-11-12] MEDS ORDERED: BUPROPION HCL75 MG PO (13:16)
[2022-11-12] MEDS ORDERED: METO25 PO (13:17)
[2022-11-12] MEDS ORDERED: TAMS.4ER PO (13:17)
--- NOTE | 2022-11-12 18:22 | NUR ---
PT AWAKE DURING SHIFT REPORT, RESTING QUIETLY WITH RLE ELEVATED ON PILLOW AND EGG CRATE. PT REPORTING HEEL PAIN REMAINED RESOLVED, SINCE EXTENDED ELEVATION YESTERDAY. PT ABLE TO SIT UP IN BED AND EAT ALL OF BREAKFAST. MEDS TAKEN W/O DIFFICULTY IN PUDDING PER PT REQUEST. DR DUEÑAS IN TO SEE PT EARLY; UPDATED ON PT STATUS. REPORTING 75% IMPROVEMENT YESTERDAY, WITH CONTINUED IMPROVEMENT TODAY. PT ABLE TO D/C TO HOME, BUT MAYBE NEEDING CARE MANAGEMENT TO ASSIST. LATER IN REPORTING THAT SHE HAS EVERYTHING SHE NEEDS TO TAKE PT HOME AND TO TX PT TO W/C AND VAN. PT BECOMING AGITATED WAITING FOR TO COME IN THIS AM. PT PULLING OFF CAST AND ATTEMTING TO PULL OUT DELUCA CATH. PT BECOMING VIOLENT AND ANGRY WHEN ATTEMPTING TO EDU PT ON NEED TO LEAVE CAST ON RLE AND NOT TO PULL DELUCA CATH OUT. TO AND ABLE TO CALM PT DOWN. REQUESTING MEDICATIONS TO BE DOUBLED OR SHE WOULD TAKE PT HOME AMA. DR DUEÑAS NOTIFIED AND UPDATED ON PT STATUS. D/C ORDERS PLACED AND INSTRUCTIONS REVIEWED WITH . PT'S VERBALIZED UNDERSTANDING. AND NEICE ASSISTED PT TO HIS OWN WHEEL CHAIR AND TOOK PT OUT TO W/C VAN.
== END 2022-11-12 14:50 | disposition home or self-care (01) | DRG 56 ==
LOC: ER 13:20 → MEDS 13:21
PROVIDERS: Family Medicine; Internal Medicine; Student in an Organized Health Care Education/Training Program; ADMIT Internal Medicine
PROC: 0T9B70Z Drainage of Bladder with Drainage Device, Via Natural or Artificial Opening (ICD-10-PCS; principal; 2022-11-06)
DX: G91.2 (Idiopathic) normal pressure hydrocephalus (principal); G92.8 Other toxic encephalopathy; I62.02 Nontraumatic subacute subdural hemorrhage; S82.241A Displaced spiral fracture of shaft of right tibia, initial encounter for closed fracture; E87.29 Other acidosis; D64.9 Anemia, unspecified; I48.91 Unspecified atrial fibrillation; I10 Essential (primary) hypertension; Z66 Do not resuscitate; S82.831A Other fracture of upper and lower end of right fibula, initial encounter for closed fracture; E78.5 Hyperlipidemia, unspecified; K59.09 Other constipation; F03.90 Unspecified dementia, unspecified severity, without behavioral disturbance, psychotic disturbance, mood disturbance, and anxiety; F32.A Depression, unspecified; F41.9 Anxiety disorder, unspecified; E03.9 Hypothyroidism, unspecified; Z98.2 Presence of cerebrospinal fluid drainage device; T42.4X5A Adverse effect of benzodiazepines, initial encounter; X58.XXXA Exposure to other specified factors, initial encounter; Z96.653 Presence of artificial knee joint, bilateral; Z79.891 Long term (current) use of opiate analgesic; Z79.899 Other long term (current) drug therapy; Z79.82 Long term (current) use of aspirin; Z79.890 Hormone replacement therapy; Z79.84 Long term (current) use of oral hypoglycemic drugs; Z79.2 Long term (current) use of antibiotics; Z90.49 Acquired absence of other specified parts of digestive tract; Z90.89 Acquired absence of other organs; Z98.890 Other specified postprocedural states; Z85.038 Personal history of other malignant neoplasm of large intestine
CPT/HCPCS: 36415; 51702; 70250; 70450; 71045; 73590; 74018; 80048; 80053; 81001; 82803; 83880; 85025; 85610; 85730; 87086; 92610; 93005; 93010; 96365; 96375; 97162; 99285-25; A9270; G0378; J0696; J3370; J7030; J7050

== ENCOUNTER 2022-11-29 08:00 | Day surgery (SDC) | payer MEDICARE ==
[~2022-11-29 08:00] MED LIST changes: +ALOGLIPTIN25 M1 PO; +ARTIFICIAL TEA1 EAC1 BOTHEYES; +Acerola C500 MG PO; +BUPROPION HCL75 MG PO; +FAMO20 PO; +FERSU300 PO; +Gormel75 GM TOP; +METO25 PO; +NYSTATIN15 GM TOP; +OXYB5 PO
== END 2022-11-29 23:59 | disposition home or self-care (01) ==
LOC: WOUND 08:00
DX: L89.613 Pressure ulcer of right heel, stage 3 (principal); E11.621 Type 2 diabetes mellitus with foot ulcer; F03.90 Unspecified dementia, unspecified severity, without behavioral disturbance, psychotic disturbance, mood disturbance, and anxiety; G62.9 Polyneuropathy, unspecified
CPT/HCPCS: G0463

== ENCOUNTER 2022-12-06 01:13 | Day surgery (SDC) | payer MEDICARE | END 2022-12-06 22:50 | disposition home or self-care (01) | LOC: WOUND 01:13 | DX: L89.613 Pressure ulcer of right heel, stage 3 (principal); E11.621 Type 2 diabetes mellitus with foot ulcer; E11.40 Type 2 diabetes mellitus with diabetic neuropathy, unspecified; F03.90 Unspecified dementia, unspecified severity, without behavioral disturbance, psychotic disturbance, mood disturbance, and anxiety | CPT/HCPCS: A9270 ==

== ENCOUNTER 2022-12-13 02:05 | Day surgery (SDC) | payer MEDICARE | END 2022-12-13 23:02 | disposition home or self-care (01) | LOC: WOUND 02:05 | DX: L89.613 Pressure ulcer of right heel, stage 3 (principal); E11.621 Type 2 diabetes mellitus with foot ulcer; E11.40 Type 2 diabetes mellitus with diabetic neuropathy, unspecified; F03.90 Unspecified dementia, unspecified severity, without behavioral disturbance, psychotic disturbance, mood disturbance, and anxiety | CPT/HCPCS: G0463 ==

== ENCOUNTER 2022-12-20 04:49 | Day surgery (SDC) | payer MEDICARE | END 2022-12-20 23:01 | disposition home or self-care (01) | LOC: WOUND 04:49 | DX: L89.614 Pressure ulcer of right heel, stage 4 (principal); E11.621 Type 2 diabetes mellitus with foot ulcer; E11.40 Type 2 diabetes mellitus with diabetic neuropathy, unspecified; F03.90 Unspecified dementia, unspecified severity, without behavioral disturbance, psychotic disturbance, mood disturbance, and anxiety | CPT/HCPCS: A9270; G0463 ==

== ENCOUNTER 2022-12-27 04:49 | Day surgery (SDC) | payer MEDICARE | END 2022-12-27 22:59 | disposition home or self-care (01) | LOC: WOUND 04:49 | DX: L89.614 Pressure ulcer of right heel, stage 4 (principal); E11.621 Type 2 diabetes mellitus with foot ulcer; E11.40 Type 2 diabetes mellitus with diabetic neuropathy, unspecified; F03.90 Unspecified dementia, unspecified severity, without behavioral disturbance, psychotic disturbance, mood disturbance, and anxiety | CPT/HCPCS: G0463 ==